=== PATIENT | female | born 1960 | race Hispanic/Latino ===

== ENCOUNTER 2017-01-02 20:32 | Emergency (ER) | payer MEDICAID ==
[2017-01-02 21:26] LABS: #Basophils 0.1 thou/uL (0.0-0.2); #Eosinphils 0.1 thou/uL (0.0-0.7); #Lymphocytes 3.1 thou/uL (1.20-3.40); #Monocytes 0.5 thou/uL (0.11-0.59); #Neutrophils 5.9 thou/uL (1.40-6.50); %Basophils 0.9 % (0.0-1.0); %Eosinophils 1.3 % (0.0-10.0); %Lymphocytes 31.6 % (21.0-51.0); %Monocytes 5.5 % (0.0-10.0); %Neutrophils 60.8 % (42.0-75.0); Hemoglobin 12.8 g/dL (12.0-16.0); Mean Corpuscular Hemoglobin 31.1 pg (27.0-31.0); Mean Corpuscular Volume 94.3 fl (81.0-99.0); Mean Platelet Volume 9.5 fL (7.4-10.4); Platelet Count 249 thou/uL (130-400); RBC Distribution Width 11.9 % (11.5-14.5); Red Blood Cell (RBC) Count 4.12 mill/uL (4.20-5.40); White Blood Cell (WBC) Count 9.8 thou/uL (4.8-10.8)
[2017-01-02 21:32] LABS: ALT (SGPT) 30 U/L (8-55); AST (SGOT) 28 U/L (5-34); Albumin 4.1 g/dL (3.5-5.0); Alkaline Phosphatase 89 U/L (40-150); Anion Gap 19 mmol/L (10-20); BUN (Urea Nitrogen) 22 mg/dL (9.8-20.1); Bilirubin, Total 0.4 mg/dL (0.2-1.2); Calc. Creatinine Clearance 0 mL/min (70-130); Calcium 9.6 mg/dL (7.8-10.44); Carbon Dioxide 20 mmol/L (22-29); Chloride 103 mmol/L (98-107); Estimated GFR-MDRD 55; Globulin 3.1 g/dL (2.4-3.5); Glucose 217 mg/dL (70-105); Lipase 42 U/L (8-78); Potassium 3.5 mmol/L (3.5-5.1); Protein, Total 7.2 g/dL (6.0-8.3); Sodium 138 mmol/L (136-145)
[2017-01-02 21:38] LABS: CKMB 1.2 ng/mL (0-6.6); Troponin I Less than 0.010 ng/mL (< 0.028)
[2017-01-02 21:50] LABS: Clarity Hazy (Clear)
[2017-01-02 21:51] LABS: Bacteria/HPF 1+ HPF (None Seen); Bilirubin Negative (Negative); Blood, Urine Negative (Negative); Glucose, Urine (Dipstick) Negative (Negative); Leukocyte Small (Negative); Nitrite Negative (Negative); Protein, Urine (Dipstick) Negative (Neg-Trace); RBC/HPF 0-3 HPF (0-3); Renal Epithelial 0-3 HPF (0-3); Squamous Epithelial 0-3 HPF (0-3); Transitional Epithelial 0-3 HPF (0-3); Urobilinogen 0.2 mg/dL (0.2-1.0)
[2017-01-02 22:24] LABS: Specific Gravity, Urine 1.003 (1.002-1.036)
== END 2017-01-02 21:47 | disposition home or self-care (01) ==
LOC: MADERS 20:32
DX: E11.65 Type 2 diabetes mellitus with hyperglycemia (principal); I10 Essential (primary) hypertension; Z79.899 Other long term (current) drug therapy; Z79.84 Long term (current) use of oral hypoglycemic drugs; Z85.3 Personal history of malignant neoplasm of breast; Z92.3 Personal history of irradiation; Z92.21 Personal history of antineoplastic chemotherapy
CPT/HCPCS: 36416; 80053; 81003; 81015; 82553; 83690; 84484; 85025; 93005; 36415-59

== ENCOUNTER 2018-01-20 15:50 | Outpatient (CLI) | payer OTHER ==
[~2018-01-20 15:50] MED LIST: Iopamidol 370 76% 100 ML VIAL ONE
--- NOTE | 2018-01-20 17:34 | CT ---
CT CHEST WITH CONTRAST: CT ABDOMEN AND PELVIS WITH CONTRAST: HISTORY: Breast cancer. Left hip and back pain. Shoulder pain. Evaluate for recurrent disease. TECHNIQUE: Multiple contiguous axial images were obtained in a CT of the chest with contrast. Sagittal and segun nal reformats were performed. Multiple contiguous axial images were obtained in a CT of the abdomen and pelvis with contrast. Sagi ttal and coronal reformats were performed. FINDINGS: CHEST: The heart is normal in size. No hilar or mediastinal lymphadenopathy is seen. No suspicious pulmonary nodules are seen. No focal infiltrates are seen. No pneumothorax or pleural effusion is present. The patient has a left breast implant. Surgical clips are seen in the left axillary region. No enla rged axillary lymph nodes are seen. Degenerative changes are seen in the spine. No suspicious lesio ns are seen in the bones of the thorax. ABDOMEN AND PELVIS: The liver, gallbladder, kidneys, adrenal glands, spleen, and pancreas are unrema rkable. No free air, free fluid, or stranding changes are seen in the abdomen or pelvis. The reproductive organs are unremarkable. The large and small bowel are unremarkable. No abdominal or pelvic lymphadenopathy is seen. Atherosclerotic calcifications are seen in the aorta. There is a subcentimeter small, sclerotic lesion in the left sacrum. This may represent a bone islan d, but an isolated metastatic lesion cannot be excluded. Mild degenerative changes are seen in the l umbar spine. The abdominal wall soft tissues are unremarkable. IMPRESSION: 1. No evidence of intrathoracic metastatic disease or acute intrathoracic abnormality. 2. No evidence of acute intraabdominal abnormality. 3. Nonspecific small sclerotic lesion at the left aspect of the sacrum. Although this most likely re presents a bone island, an isolated solitary metastatic lesion to the bone is still a consideration. A bone scan may be necessary to evaluate for activity within this lesion. POS: LISY
== END 2018-01-20 15:51 | disposition home or self-care (01) ==
LOC: MADCT 15:50
DX: M25.512 Pain in left shoulder (principal); M25.552 Pain in left hip; M54.9 Dorsalgia, unspecified; M53.3 Sacrococcygeal disorders, not elsewhere classified; Z85.3 Personal history of malignant neoplasm of breast
CPT/HCPCS: 71260; 74177

== ENCOUNTER 2019-06-06 22:31 | Emergency (ER) | payer OTHER ==
[2019-06-06] MEDS ORDERED: Ondansetron ODT 4 MG TAB ONE (22:59)
[2019-06-06 23:10] LABS: #Basophils 0.1 thou/uL (0.0-0.2); #Eosinphils 0.2 thou/uL (0.0-0.7); #Lymphocytes 3.6 thou/uL (1.20-3.40); #Monocytes 0.7 thou/uL (0.11-0.59); #Neutrophils 7.1 thou/uL (1.40-6.50); %Basophils 0.8 % (0.0-1.0); %Lymphocytes 30.3 % (21.0-51.0); %Monocytes 6.2 % (0.0-10.0); %Neutrophils 60.7 % (42.0-75.0); Hemoglobin 13.2 g/dL (12.0-16.0); Mean Corpuscular HGB CONC 32.1 g/dL (32.0-36.0); Mean Corpuscular Hemoglobin 30.7 pg (27.0-31.0); Mean Corpuscular Volume 95.5 fL (78.0-98.0); Mean Platelet Volume 8.9 fL (7.4-10.4); Platelet Count 340 thou/uL (130-400); RBC Distribution Width 12.1 % (11.5-14.5); Red Blood Cell (RBC) Count 4.29 mill/uL (4.20-5.40); White Blood Cell (WBC) Count 11.7 thou/uL (4.8-10.8)
[2019-06-06 23:12] LABS: Bilirubin Negative (Negative); Blood, Urine Trace (Negative); Clarity Clear (Clear); Glucose, Urine (Dipstick) 500 mg/dL (Negative); Leukocyte Small (Negative); Nitrite Negative (Negative); Protein, Urine (Dipstick) Trace mg/dL (Neg-Trace); Urobilinogen 0.2 mg/dL (Less than 2)
[2019-06-06 23:20] LABS: Bacteria/HPF 1+ HPF (None Seen); RBC/HPF 0-3 HPF (0-3); Squamous Epithelial 0-3 HPF (0-3)
[2019-06-06 23:21] LABS: Mucous/LPF 1+ LPF (<2+)
[2019-06-06 23:29] LABS: ALT (SGPT) 29 U/L (8-55); AST (SGOT) 21 U/L (5-34); Albumin 4.5 g/dL (3.5-5.0); Alkaline Phosphatase 111 U/L (40-110); Anion Gap 19 mmol/L (10-20); BUN (Urea Nitrogen) 23 mg/dL (9.8-20.1); Bilirubin, Total 0.4 mg/dL (0.2-1.2); Calc. Creatinine Clearance 0 mL/min (70-130); Calcium 10.4 mg/dL (7.8-10.44); Carbon Dioxide 28 mmol/L (22-29); Chloride 100 mmol/L (98-107); Estimated GFR-MDRD 45; Globulin 3.8 g/dL (2.4-3.5); Glucose 208 mg/dL (70-105); Lipase 48 U/L (8-78); Potassium 4.9 mmol/L (3.5-5.1); Protein, Total 8.3 g/dL (6.0-8.3); Sodium 142 mmol/L (136-145)
[2019-06-06] MEDS ORDERED: Pantoprazole 40 MG VIAL ONE (23:42)
[2019-06-06] MEDS ORDERED: Sodium Chloride 0.9% 1,000 ML ONE (23:42)
== END 2019-06-07 01:19 | disposition home or self-care (01) ==
LOC: MADERS 22:31
DX: E86.9 Volume depletion, unspecified (principal); R11.2 Nausea with vomiting, unspecified; E11.9 Type 2 diabetes mellitus without complications; I10 Essential (primary) hypertension; Z79.84 Long term (current) use of oral hypoglycemic drugs; Z79.899 Other long term (current) drug therapy
CPT/HCPCS: 80053; 81003; 81015; 83605; 83690; 84484; 85025; 93005; 96361; 96374; C9113; J7050; Q0162

== ENCOUNTER 2019-12-22 03:29 | Emergency (ER) | payer OTHER ==
[2019-12-22 04:26] LABS: #Basophils 0.1 thou/uL (0.0-0.2); #Eosinphils 0.1 thou/uL (0.0-0.7); #Lymphocytes 2.7 thou/uL (1.20-3.40); #Monocytes 0.5 thou/uL (0.11-0.59); #Neutrophils 5.3 thou/uL (1.40-6.50); %Basophils 0.8 % (0.0-1.0); %Eosinophils 1.7 % (0.0-10.0); %Lymphocytes 30.8 % (21.0-51.0); %Monocytes 6.1 % (0.0-10.0); %Neutrophils 60.7 % (42.0-75.0); Mean Corpuscular HGB CONC 31.8 g/dL (32.0-36.0); Mean Corpuscular Volume 94.5 fL (78.0-98.0); Mean Platelet Volume 8.8 fL (7.4-10.4); Platelet Count 285 thou/uL (130-400); RBC Distribution Width 12.6 % (11.5-14.5); White Blood Cell (WBC) Count 8.7 thou/uL (4.8-10.8)
[2019-12-22] MEDS ORDERED: Famotidine In NaCl 20 mg/50 ml Premix Bag ONE (04:47)
[2019-12-22] MEDS ORDERED: Ondansetron PF 4 MG/2 ML Vial ONE (04:47)
[2019-12-22] MEDS ORDERED: Sodium Chloride 0.9% 1,000 ML ONE (04:47)
[2019-12-22 04:48] LABS: ALT (SGPT) 31 U/L (8-55); AST (SGOT) 26 U/L (5-34); Albumin 3.9 g/dL (3.5-5.0); Alkaline Phosphatase 96 U/L (40-110); Anion Gap 16 mmol/L (10-20); BUN (Urea Nitrogen) 21 mg/dL (9.8-20.1); Bilirubin, Total 0.3 mg/dL (0.2-1.2); Calc. Creatinine Clearance 0 mL/min (70-130); Calcium 9.3 mg/dL (7.8-10.44); Carbon Dioxide 25 mmol/L (22-29); Chloride 102 mmol/L (98-107); Estimated GFR-MDRD 49; Globulin 3.5 g/dL (2.4-3.5); Glucose 304 mg/dL (70-105); Lipase 50 U/L (8-78); Potassium 4.4 mmol/L (3.5-5.1); Protein, Total 7.4 g/dL (6.0-8.3); Sodium 139 mmol/L (136-145)
--- NOTE | 2019-12-22 07:53 | RAD ---
XR Abdomen 2 View/1 View Cxr History: Abdominal pain Comparison: None. Findings: Lungs are clear. No pneumothorax. No effusion. No dilated air-filled loops of large or small bowel. On the upright view no free air is seen under th e left hemidiaphragm. The right hemidiaphragm is not interrogated on the upright abdominal radiograph. No abnormal calcifications are seen projecting over the renal shadows. Moderate degeneration of the p ubic symphysis. Impression: No acute intrathoracic nor intra-abdominal abnormality.
== END 2019-12-22 05:28 | disposition home or self-care (01) ==
LOC: MADERS 03:29
DX: R10.13 Epigastric pain (principal); R11.2 Nausea with vomiting, unspecified; E11.9 Type 2 diabetes mellitus without complications; I10 Essential (primary) hypertension; Z79.899 Other long term (current) drug therapy; Z79.84 Long term (current) use of oral hypoglycemic drugs
CPT/HCPCS: 74022; 80053; 83690; 84484; 85025; 93005; 96365; 96375; J2405; J7050

== ENCOUNTER 2019-12-29 12:58 | Emergency (ER) | payer OTHER ==
[2019-12-29] MEDS ORDERED: Metoclopramide HCl 10 MG/2 ML VIAL ONE (13:40)
== END 2019-12-29 14:14 | disposition home or self-care (01) ==
LOC: MADERS 12:58
DX: E11.43 Type 2 diabetes mellitus with diabetic autonomic (poly)neuropathy (principal); K31.84 Gastroparesis; I10 Essential (primary) hypertension; Z79.84 Long term (current) use of oral hypoglycemic drugs; Z79.899 Other long term (current) drug therapy
CPT/HCPCS: 96372; 99283; J2765

== ENCOUNTER 2020-07-27 09:01 | Outpatient (CLI) | payer OTHER ==
[2020-07-27 09:31] LABS: ALT (SGPT) 22 U/L (8-55); AST (SGOT) 20 U/L (5-34); Albumin 4.1 g/dL (3.4-4.8); Alkaline Phosphatase 81 U/L (40-110); Anion Gap 15 mmol/L (10-20); BUN (Urea Nitrogen) 33 mg/dL (9.8-20.1); Bilirubin, Total 0.6 mg/dL (0.2-1.2); Calc. Creatinine Clearance 0 mL/min (70-130); Calcium 9.3 mg/dL (7.8-10.44); Carbon Dioxide 25 mmol/L (23-31); Cardiac Risk 2.7 (Less than 4.5); Chloride 105 mmol/L (98-107); Cholesterol 134 mg/dl (< 200 Desired); Globulin 3.3 g/dL (2.4-3.5); Glucose 126 mg/dL (80-115); HDL Cholesterol 49 mg/dL (>60 Neg Risk); LDL Cholesterol, Calculated 67 mg/dL; Potassium 4.7 mmol/L (3.5-5.1); Protein, Total 7.4 g/dL (5.8-8.1); Sodium 140 mmol/L (136-145); Triglycerides 90 mg/dL (Less than 150)
[2020-07-27 17:08] LABS: Hemoglobin A1c 6.8 % (4.0-6.0)
== END 2020-07-27 09:02 | disposition home or self-care (01) ==
LOC: MADLAB 09:01
PROVIDERS: ATTEND Family Medicine
DX: E78.00 Pure hypercholesterolemia, unspecified (principal); E11.9 Type 2 diabetes mellitus without complications
CPT/HCPCS: 36415; 80053; 80061; 83036

== ENCOUNTER 2021-05-30 12:07 | Outpatient (CLI) | payer OTHER | END 2021-05-30 12:08 | disposition home or self-care (01) | LOC: MADRAD 12:07 | PROVIDERS: ATTEND Family Medicine | DX: M25.561 Pain in right knee (principal); M25.461 Effusion, right knee ==

== ENCOUNTER 2021-07-01 11:11 | Emergency (ER) | payer OTHER ==
[2021-07-01 12:01] LABS: Bilirubin Negative (Negative); Blood, Urine Trace (Negative); Clarity Clear (Clear); Glucose, Urine (Dipstick) 500 mg/dL (Negative); Ketone, Urine Negative (Negative); Leukocyte Negative (Negative); Nitrite Negative (Negative); Protein, Urine (Dipstick) Negative (Neg-Trace); Urobilinogen 0.2 mg/dL (Less than 2)
[2021-07-01 12:12] LABS: RBC/HPF 0-3 HPF (0-3); WBC/HPF None Seen HPF (0-3)
[2021-07-01 12:13] LABS: Bacteria/HPF Rare-Few HPF (None Seen); Squamous Epithelial 0-3 HPF (0-3)
== END 2021-07-01 12:28 | disposition home or self-care (01) ==
LOC: MADERS 11:11
DX: R42 Dizziness and giddiness (principal); E78.5 Hyperlipidemia, unspecified; I10 Essential (primary) hypertension; Z79.899 Other long term (current) drug therapy; Z79.84 Long term (current) use of oral hypoglycemic drugs; Z79.4 Long term (current) use of insulin
CPT/HCPCS: 36416; 81003; 81015; 93005